=== PATIENT | female | born 1940 | race African-American/Black ===

== ENCOUNTER → 2018-06-27 | Outpatient (CLI) | payer OTHER, BC ==
[~2018-06-27] MED LIST: ASPIR 8181 MG PO; CIPRO500 MG PO; COLACE100 MG PO; HYDROCHLOROTHIA25 M2 PO; LIPITOR10 MG PO; LISINOPRIL20 MG PO; MILK OF MA2400 MG/10 PO; NORVASC 5 MG TAB5 MG PO; NORVASC10 MG PO; PEPCID20 MG PO; PRINIVIL10 MG PO
== END ==
LOC: MRI 10:26
DX: M75.101 Unspecified rotator cuff tear or rupture of right shoulder, not specified as traumatic (principal); M25.411 Effusion, right shoulder; I10 Essential (primary) hypertension